=== PATIENT | female | born 1965 | race Caucasian/White ===

== ENCOUNTER 2017-04-04 17:28 | Inpatient (IN) | payer OTHER ==
[~2017-04-04] VITALS: Ht 160 cm; Wt 56.8 kg
[2017-04-04 18:57] LABS: PLATELET COUNT 377 x10^3mcL (130-400); RED CELL DISTRIBUTION WIDTH 14.1 % (11.5-14.5)
[2017-04-04 19:20] LABS: ALBUMIN 3.6 g/dL (3.4-5.0); BILIRUBIN TOTAL 0.77 mg/dL (0.20-1.00); CALCIUM 8.7 mg/dL (8.5-10.1); CREATININE SERUM 2.5 mg/dL (0.6-1.0); TOTAL PROTEIN, SERUM 6.8 g/dL (6.4-8.2)
[2017-04-04 19:26] LABS: BAND NEUTROPHIL 14 % (0-10); BASOPHIL 0 % (0-2); MONOCYTE 3 % (0-7); SEGMENTED NEUTROPHILS 75 % (37-75)
[2017-04-04 19:28] LABS: CARBON DIOXIDE 6.6 mmol/L (21-32); POTASSIUM SERUM 6.1 mmol/L (3.5-5.1)
[2017-04-04 19:29] LABS: rbc morphology (normal/abnorm) NORMAL (NORMAL)
[2017-04-04 19:30] LABS: PLATELET MORPHOLOGY PLATELETS NORMAL
[2017-04-04 21:48] LABS: T3 TOTAL 0.5 ng/mL
[2017-04-04 23:26] LABS: MAGNESIUM 1.9 mg/dL (1.8-2.4); PHOSPHOROUS 8.2 mg/dL (2.5-4.9)
[2017-04-04 23:28] LABS: CHOLESTEROL/HDL RATIO 2.7
[2017-04-04 23:47] LABS: FREE T4 1.09 ng/dL (0.76-1.46); FREE THYROXINE INDEX 2.4 ug/dL (1.4-4.5); T4(THYROXINE) 6.3 ug/dL (4.7-13.3)
[2017-04-05] MEDS ORDERED: METOPROLOL TART25 M1 PO (01:24)
[2017-04-05 01:43] VITALS: BP 100/76
[2017-04-05 02:01] VITALS: BP 116/57
[2017-04-05 02:22] LABS: CALCIUM 7.3 mg/dL (8.5-10.1); CARBON DIOXIDE 20.4 mmol/L (21-32); CREATININE SERUM 2.2 mg/dL (0.6-1.0); POTASSIUM SERUM 3.5 mmol/L (3.5-5.1)
[2017-04-05 02:35] LABS: UA SPECIFIC GRAVITY 1.015 (1.005-1.035); microscopic required? YES; urine erythrocyte 1+ (NEGATIVE)
[2017-04-05 02:50] LABS: AMPHETAMINE QUAL UR NONE DETECTED (NEG <=1000)
[2017-04-05 03:47] VITALS: BP 118/59
[2017-04-05 05:53] LABS: BASOPHIL % 0.3 % (0-2); PLATELET COUNT 298 x10^3mcL (130-400); RED CELL DISTRIBUTION WIDTH 12.5 % (11.5-14.5)
[2017-04-05] MEDS ORDERED: NOVI SC (06:02)
[2017-04-05 06:04] LABS: CALCIUM 7.2 mg/dL (8.5-10.1); CARBON DIOXIDE 22.7 mmol/L (21-32); CREATININE SERUM 2.3 mg/dL (0.6-1.0); POTASSIUM SERUM 3.1 mmol/L (3.5-5.1)
[2017-04-05 06:08] LABS: RED BLOOD CELLS 2.58 M/mm3 (4.10-5.10)
[2017-04-05 06:14] LABS: IRON 11 ug/dL (50-170); TOTAL IRON BINDING CAPACITY 167 ug/dL (250-450)
[2017-04-05 06:38] LABS: GLUCOSE SERUM 581.59 mg/dL (74-106)
[2017-04-05 08:00] VITALS: BP 108/58
[2017-04-05 09:15] LABS: CALCIUM 7.1 mg/dL (8.5-10.1); CARBON DIOXIDE 24.5 mmol/L (21-32); CREATININE SERUM 2.1 mg/dL (0.6-1.0)
[2017-04-05 09:16] LABS: POTASSIUM SERUM 2.7 mmol/L (3.5-5.1)
[2017-04-05 12:00] VITALS: BP 108/63
[2017-04-05 12:45] LABS: CALCIUM 7.4 mg/dL (8.5-10.1); CARBON DIOXIDE 24.2 mmol/L (21-32); CREATININE SERUM 1.9 mg/dL (0.6-1.0)
[2017-04-05 12:47] LABS: POTASSIUM SERUM 2.9 mmol/L (3.5-5.1)
[2017-04-05 15:35] VITALS: Ht 160 cm; Wt 56.8 kg
[2017-04-05 16:30] VITALS: BP 102/59
[2017-04-06 06:13] VITALS: BP 127/68
[2017-04-06 09:55] VITALS: BP 139/75
[2017-04-06 11:06] LABS: PLATELET COUNT 201 x10^3mcL (130-400); RED CELL DISTRIBUTION WIDTH 12.9 % (11.5-14.5)
[2017-04-06 11:30] LABS: ALBUMIN 2.7 g/dL (3.4-5.0); BILIRUBIN TOTAL 0.52 mg/dL (0.20-1.00); CALCIUM 7.8 mg/dL (8.5-10.1); CARBON DIOXIDE 22.7 mmol/L (21-32); CREATININE SERUM 1.5 mg/dL (0.6-1.0); MAGNESIUM 1.3 mg/dL (1.8-2.4); POTASSIUM SERUM 3.5 mmol/L (3.5-5.1); TOTAL PROTEIN, SERUM 5.8 g/dL (6.4-8.2)
[2017-04-06 12:42] VITALS: BP 132/70
[2017-04-06 14:17] LABS: BAND NEUTROPHIL 5 % (0-10); BASOPHIL 0 % (0-2); SEGMENTED NEUTROPHILS 92 % (37-75)
[2017-04-06 14:18] LABS: PLATELET MORPHOLOGY PLATELETS NORMAL; rbc morphology (normal/abnorm) NORMAL (NORMAL)
[2017-04-06 17:35] VITALS: BP 147/85
[2017-04-06 20:00] VITALS: BP 138/77
[2017-04-07 05:32] VITALS: BP 124/66
[2017-04-07 09:29] VITALS: BP 145/80
[2017-04-07 11:39] LABS: BASOPHIL % 0.3 % (0-2); PLATELET COUNT 167 x10^3mcL (130-400); RED CELL DISTRIBUTION WIDTH 12.6 % (11.5-14.5)
[2017-04-07 11:45] LABS: CALCIUM 7.9 mg/dL (8.5-10.1); CARBON DIOXIDE 23.4 mmol/L (21-32); CHLORIDE SERUM 103 mmol/L (98-107); GFR1 > 60 mL/min; GLUCOSE SERUM 287 mg/dL (74-106); MAGNESIUM 1.6 mg/dL (1.8-2.4); PHOSPHOROUS 2.1 mg/dL (2.5-4.9); POTASSIUM SERUM 3.2 mmol/L (3.5-5.1); SODIUM SERUM 139 mmol/L (136-145)
[2017-04-07] MEDS ORDERED: ZOF4 PO ×2 (13:34→17:44)
[2017-04-07] MEDS ORDERED: BD LACTINEX1.4 MG PO (13:44)
[2017-04-07] MEDS ORDERED: LEVAQUIN750 MG PO (13:44)
[2017-04-07 16:38] VITALS: BP 144/80
[2017-04-07 16:49] VITALS: BP 127/68
== END 2017-04-07 18:09 | disposition home or self-care (01) | DRG 637 ==
LOC: ED 17:28 → IC 20:39 → DU 04-05 21:50 → MU 04-06 13:50
PROVIDERS: Emergency Medicine; Student in an Organized Health Care Education/Training Program
DX: E10.10 Type 1 diabetes mellitus with ketoacidosis without coma (principal); G93.41 Metabolic encephalopathy; J18.9 Pneumonia, unspecified organism; N17.0 Acute kidney failure with tubular necrosis; I24.8 Other forms of acute ischemic heart disease; N39.0 Urinary tract infection, site not specified; E87.1 Hypo-osmolality and hyponatremia; E87.5 Hyperkalemia; E83.39 Other disorders of phosphorus metabolism; D53.9 Nutritional anemia, unspecified; E78.5 Hyperlipidemia, unspecified; I10 Essential (primary) hypertension; Z79.4 Long term (current) use of insulin
CPT/HCPCS: 36556; 36600; 82962; 83880; 84439; J1642; J1644; J1815; J1956; J2060; J2270; J2405; J2543; J3480; J3490; J7030; J7620; Q0092